=== PATIENT | male | born 1970 | race African-American/Black ===

== ENCOUNTER 2019-06-26 11:27 | Emergency (ER) | payer OTHER ==
[~2019-06-26] VITALS: Ht 175.3 cm; Wt 74.8 kg
[~2019-06-26 11:27] MED LIST: IBUP-1542 PO; ZOLP5TAB PO
[2019-06-26 11:32] VITALS: Ht 175.3 cm; Wt 74.8 kg
[2019-06-26] MEDS ORDERED: HYDROCODONE/APAP (5/325) TAB PO ONE (12:30)
[2019-06-26 14:16] VITALS: BP 132/77; PULSE 82; RESP 20
== END 2019-06-26 14:19 | disposition home or self-care (01) ==
LOC: FTE 11:27
DX: S92.001A Unspecified fracture of right calcaneus, initial encounter for closed fracture (principal); S90.02XA Contusion of left ankle, initial encounter; G47.00 Insomnia, unspecified; X58.XXXA Exposure to other specified factors, initial encounter; Y92.9 Unspecified place or not applicable
CPT/HCPCS: 73610; 73630; Z7502; Z7610